=== PATIENT | male | born 1975 | race Caucasian/White ===

== ENCOUNTER 2016-10-06 00:40 | Emergency (ER) | payer BC ==
[2016-10-06] MEDS ORDERED: diPHENhydraMINE IV* 50 MG/ML 1 ml VIAL (BENADRYL) SLOW PUSH ONE (00:58)
[2016-10-06] MEDS ORDERED: NS 0.9% 1000 ML* 1,000 ML IV ONE (00:58)
[2016-10-06] MEDS ORDERED: Famotidine IV* 10 MG/ML 2 ML (20 mg) IV SLOW PU ONE (00:58)
[2016-10-06] MEDS ORDERED: methylPREDNISolone 125 MG* 2 ML VIAL IV ONE (00:58)
[2016-10-06] MEDS ORDERED: diPHENhydraMINE IV* 50 MG/ML 1 ml VIAL (BENADRYL) ONE (00:58)
[2016-10-06] MEDS ORDERED: methylPREDNISolone 125 MG* 2 ML VIAL ONE (00:59)
[2016-10-06] MEDS ORDERED: Famotidine IV* 10 MG/ML 2 ML (20 mg) ONE ×2 (00:59→01:01)
--- NOTE | 2016-10-06 01:19 | ED ---
I, Oh,Padmini, scribed for Carlos Carson MD on 10/06/16 at 0105 . Allergic Reaction/Systemic - HPI Summary HPI Summary: This 41 y/o male presents to ED after waking up in middle of tonight with full body rash and itching at 0030 AM. Positive cough and wheezing. Pt denies any known allergies besides seasonal allergies. He also denies any unusual food consumption and unable to report any other exposure that could have caused the reaction. He does report tick exposure last week, and expresses concern over possible "tick-borne" allergic reaction. 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 - History of Current Complaint Chief Complaint: EDRespiratoryDistress Time Seen by Provider: 10/06/16 00:47 Hx Obtained From: Patient, Medical Records Onset/Duration: Sudden Onset Timing: Constant Location: Diffuse Aggravating Factor(s): Nothing Alleviating Factor(s): Nothing Associated Signs And Symptoms: Positive: Cough Wheezing, Rash - Allergies/Home Medications Allergies/Adverse Reactions: Allergies Allergy/AdvReac Type Severity Reaction Status Date / Time No Known Allergies Allergy Verified 10/06/16 01:28 PMH/Surg Hx/FS Hx/Imm Hx Endocrine/Hematology History: Denies: Hx Diabetes Cardiovascular History: Denies: Hx Hypertension, Hx Pacemaker/ICD Sensory History: Denies: Hx Hearing Aid Psychiatric History: Denies: Hx Panic Disorder - Surgical History Surgery Procedure, Year, and Place: cyst removed from lt hand. vasectomy Infectious Disease History: Denies: Traveled Outside the [place] in Last 30 Days - Family History Known Family History: Negative: Cardiac Disease, Hypertension, Diabetes Review of Systems Negative: Fever, Chills Positive: Cough - cough wheezing Positive: Rash - fullbody, itchy All Other Systems Reviewed And Are Negative: Yes Physical Exam Triage Information Reviewed: Yes Vital Signs On Initial Exam: Initial Vitals Temp Pulse Resp BP Pulse Ox 98 F 108 20 131/81 94 10/06/16 00:42 10/06/16 00:42 10/06/16 00:42 10/06/16 00:42 10/06/16 00:42 Vital Signs Reviewed: Yes Appearance: Positive: Well-Appearing, No Pain Distress Skin: Positive: Other - diffuse macular erythematous rash on torso and extremities, few urticaria Head/Face: Positive: Normal Head/Face Inspection ENT: Positive: Pharynx normal. Negative: Pharyngeal erythema, Tonsillar swelling Neck: Positive: Supple Respiratory/Lung Sounds: Positive: Clear to Auscultation, Breath Sounds Present Cardiovascular: Positive: Normal Abdomen Description: Positive: Nontender, Soft Bowel Sounds: Positive: Present Musculoskeletal: Positive: Strength/ROM Intact Neurological: Positive: Sensory/Motor Intact Psychiatric: Positive: Affect/Mood Appropriate Diagnostics - Vital Signs Vital Signs Temp Pulse Resp BP Pulse Ox 10/06/16 00:42 98 F 108 20 131/81 94 - Laboratory Lab Statement: Any lab studies that have been ordered have been reviewed, and results considered in the medical decision making process. Allergic Reaction Course/Dx - Course Assessment/Plan: THis 41 y/o male presents to ED after waking up tonight with full body itchy rash, and cough wheezing. Pt denies eating any unusual food or any other possible exposures. He also denies any known allergies bedsides his seaonsal allergy. 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 - Diagnoses Provider Diagnoses: Allergic reaction Discharge - Discharge Plan Condition: Stable Disposition: HOME Prescriptions: Famotidine TAB* [Pepcid 20 MG TAB*] 20 mg PO BID #20 tab diPHENhydraMINE PO* [Benadryl PO 25 MG TAB*] 25 mg PO Q6H #30 tab predniSONE TAB* [Deltasone TAB*] 40 mg PO DAILY #8 tab Patient Education Materials: General Allergic Reaction (ED), Famotidine (By mouth), Diphenhydramine (By mouth), Prednisone (By mouth) Referrals: Davida Alatorre NP [Primary Care Provider] - 2 Days Mihir Pimentel MD [Medical Doctor] - 2 Days The documentation as recorded by the Carrington bravo Soohyun accurately reflects the service I personally performed and the decisions made by me, Carlos Carson MD.
[2016-10-06] MEDS ORDERED: Albuterol/Ipratropium NEB.SOL* Albuterol 2.5 MG/Ipratropium 0.5 MG 3 ML INH ONE (01:30)
[2016-10-06 02:19] VITALS: BP 117/70
== END 2016-10-06 02:19 | disposition home or self-care (01) ==
LOC: ED 00:40
DX: T78.40XA Allergy, unspecified, initial encounter (principal); R05 Cough; R21 Rash and other nonspecific skin eruption; X58.XXXA Exposure to other specified factors, initial encounter
CPT/HCPCS: 94640; 96374; 96375; A9270-GY; J1200; J2930